=== PATIENT | female | born 1980 | race Asian ===

== ENCOUNTER 2016-12-11 11:13 | Day surgery (SDC) | payer OTHER ==
[~2016-12-11] VITALS: Ht 157.5 cm; Wt 53.9 kg
[2016-12-11] VITALS (8 sets, daily range): BP systolic 103–119; BP diastolic 61–74; PULSE 72–90; RESP 16–20; Ht 157.5 cm; Wt 53.9 kg
[2016-12-11] MEDS ORDERED: SOD CHLORIDE 0.9% 1,000 ML IV SCH (12:00)
[2016-12-11] MEDS ORDERED: CEFAZOLIN 2 GM/50 ML (PMX) 50 ML IVPB ONE (12:00)
[2016-12-11 12:16] LABS: ADD SCAN DIFF NO
[2016-12-11 12:18] LABS: BASOPHILS % 0.6 % (0.0-2.0); EOSINOPHILS # 0.2 10^3/ul (0.0-0.5); EOSINOPHILS % 4.7 % (0.0-7.0); HEMATOCRIT 40.7 % (37.0-47.0); HEMOGLOBIN 13.2 g/dl (12.0-16.0); LYMPHOCYTES # 1.9 10^3/ul (0.8-2.9); LYMPHOCYTES % 37.8 % (15.0-51.0); MEAN CORPUSCULAR HEMOGLOBIN 28.4 pg (29.0-33.0); MEAN CORPUSCULAR HGB CONC 32.4 g/dl (32.0-37.0); MEAN CORPUSCULAR VOLUME 87.5 fl (82.0-101.0); MEAN PLATELET VOLUME 9.9 fl (7.4-10.4); MONOCYTE # 0.3 10^3/ul (0.3-0.9); NEUTROPHIL # 2.4 10^3/ul (1.6-7.5); NEUTROPHILS % 49.7 % (39.0-77.0); PLATELET COUNT 263 10^3/UL (140-415); RED BLOOD COUNT 4.65 10^6/ul (4.20-5.40); RED CELL DISTRIBUTION WIDTH 13.6 % (11.5-14.5); WHITE BLOOD COUNT 4.9 10^3/ul (4.8-10.8)
[2016-12-11 12:37] LABS: ALBUMIN/GLOBULIN RATIO 1.42; BILIRUBIN,INDIRECT 0.5 mg/dl (0-1.1); BILIRUBIN,TOTAL 0.5 mg/dl (0.2-1.3); TOTAL PROTEIN 8.5 g/dl (6.1-8.1)
[2016-12-11 12:39] LABS: CALCIUM 9.3 mg/dl (8.4-10.2); CREATININE 0.61 mg/dl (0.44-1.00); POTASSIUM 4.2 mmol/L (3.5-5.1)
[2016-12-11 13:14] LABS: INR 1.04; PROTIME 13.6 Sec (12.2-14.2); PT RATIO 1.1
[2016-12-11 13:15] LABS: PARTIAL THROMBOPLASTIN TIME 30.1 Sec (25.0-35.0)
[2016-12-11] MEDS ORDERED: BUPIVACAINE 0.25%/EPI (SDV) 30 ML INJ ONE (13:36)
[2016-12-11] MEDS ORDERED: FENTAnyl 50 MCG/ML VIAL ONE (14:30)
[2016-12-11] MEDS ORDERED: MIDAZOLAM 1 MG/ML 2 ML INJ ONE (14:31)
[2016-12-11] MEDS ORDERED: PROPOFOL 20 ML ONE (15:18)
[2016-12-11] MEDS ORDERED: LIDOCAINE 2% (SDV) 5 ML INJ ONE (15:18)
[2016-12-11] MEDS ORDERED: FENTAnyl 50 MCG/ML VIAL IV PRN (15:30)
[2016-12-11] MEDS ORDERED: HYDROCODONE/APAP (5/325) TAB PO PRN (15:30)
[2016-12-11] MEDS ORDERED: IBUPROFEN 600 MG TAB PO PRN (15:30)
[2016-12-11] MEDS ORDERED: MEPERIDINE 25 MG INJ IV PRN (15:30)
[2016-12-11] MEDS ORDERED: ONDANSETRON 4 MG INJ IV PRN ×2 (15:30)
[2016-12-11] MEDS ORDERED: KETOROLAC 30 MG INJ IV PRN (15:30)
[2016-12-11] MEDS ORDERED: DIPHENHYDRAMINE 50 MG INJ IV PRN (15:30)
[2016-12-11] MEDS ORDERED: ONDANSETRON 4 MG INJ ONE (15:31)
[2016-12-11] MEDS ORDERED: CEFAZOLIN 1 GM INJ ONE (15:31)
--- NOTE | 2016-12-11 15:39 | OPR ---
Date/Time of Note Date/Time of Note DATE: 12/11/16 TIME: 15:34 Operative Report Procedure Date: Dec 11, 2016 Preoperative Diagnosis Left breast mass Postoperative Diagnosis Left breast mass Operation Performed Excision of left breast mass Surgeon: YARELIS KNIGHT MD Anesthesia: general Anesthesiologist: NICCI CALLEJAS MD Estimated Blood Loss: minimal Specimens Left breast mass Complications: None Pt Condition Post Procedure: stable Disposition: PACU Indications The patient is a 36-year-old female who presented to the office with a left breast mass. She had a core biopsy done which showed findings consistent with fibroadenoma. She has been experiencing increasing growth and discomfort. She was therefore scheduled for excision for symptom relief and definitive pathological diagnosis. All risks and benefits of the procedure including, but not limited to: Wound infection, excessive bleeding, postoperative seroma/ hematoma formation, mass recurrence, possible need for further surgery, etc. were all explained to the patient in full detail. She fully understood and wished to proceed with the procedure. Informed consent was obtained. Operative\Procedure Findings Findings consistent with fibroadenoma Procedure Description The patient was brought to the operating room and placed supine on the operating table. Bilateral sequential compression devices were placed on both lower extremities. A dose of broad-spectrum perioperative intravenous antibiotics was given. The mass had been preoperatively marked and confirmed with the patient in the holding area. It was located at approximately 3 fingerbreadths from the areolar the 12 o'clock position. After the induction of smooth general anesthesia the patient's left breast and chest wall were prepped and draped in standard surgical fashion. After performance of the surgical timeout 0.25% Marcaine with epinephrine was injected in a radial fashion around the area of the mass create a field block. A curvilinear incision was then made over the mass using a 15 blade scalpel and carried down through the skin and subcutaneous tissue into the breast tissue using a combination of sharp dissection and Bovie electrocautery. Dissection was continued down to the level of the mass which was dissected free of surrounding tissues. There was dense fibrous tissue in the area. The mass was then transected at its base and passed off the field as specimen. Marking suture was used to burton the superior and lateral aspects of the mass. The wound cavity was then inspected and hemostasis was noted to be adequate. Wound was then irrigated and the irrigant returned clear. Incision was then closed in layers using interrupted 3-0 Vicryl for the subcutaneous layer and the dermis. The skin was reapproximated using running 4-0 Monocryl subcuticular suture. Further local anesthesia was applied on the skin and the incision site. Incision was cleaned and Dermabond was applied. A sports bra was also applied. The patient was awoken from anesthesia and transferred to the recovery room in stable condition. All counts were correct at the end of the case 2. YARELIS KNIGHT MD Dec 11, 2016 15:39
== END 2016-12-11 17:04 | disposition home or self-care (01) ==
LOC: SDS 11:13
PROVIDERS: ATTEND Surgery
DX: D24.2 Benign neoplasm of left breast (principal)
CPT/HCPCS: 19120; 80053; 84703; 85025; 85610; 85730; 88307; J0690; J2250; J2405; J3010; Z7512; Z7610